=== PATIENT | male | born 1980 | race Caucasian/White ===

== ENCOUNTER 2017-04-26 14:49 | Emergency (ER) | payer OTHER ==
[2017-04-26] MEDS ORDERED: IBUPROFEN 600 MG TABLET (FP) PO ONE (15:03)
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
[2017-04-26 15:05] VITALS: BP 156/101; PULSE 91; TEMP 98.3; BMI 33.5
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
== END 2017-04-26 15:47 | disposition home or self-care (01) ==
LOC: JERFT 14:49
DX: S39.012A Strain of muscle, fascia and tendon of lower back, initial encounter (principal); V49.9XXA Car occupant (driver) (passenger) injured in unspecified traffic accident, initial encounter; Y93.89 Activity, other specified; Y92.410 Unspecified street and highway as the place of occurrence of the external cause
CPT/HCPCS: 99281-25